=== PATIENT | female | born 1955 | race Caucasian/White ===

== ENCOUNTER 2019-07-02 04:05 | Outpatient (CLI) | payer MEDICARE ==
[~2019-07-02] VITALS: Ht 157.5 cm; Wt 125.5 kg
--- NOTE | ~2019-07-02 | HEMODYNAMI ---
PATIENT:JP VAZQUEZ MEDICAL RECORD: [id number] : 55 LOCATION:[facility] D.2121 ADMISSION DATE: 07/02/19 Generatedon:07/02/201914:11 Patient name: JP VAZQUEZ Patient #: [id number] SSN: [id number] : 1955 Date of study: 07/02/2019 Page: Of Hemodynamic Procedure Report Patient Data Patient Demographics Procedure consent was obtained First Name: JP Gender: Female Last Name: TAYLOR : 1955 Middle Initial: R Age: 64 year(s) Patient #: [id number] Race: SSN: [id number] Additional ID: [id number] Contact details [address]: [address] [place] [address] State: [place] City: [place] Zip code: [address] Past Medical History Allergies Allergen Reaction Date Comments Reported Other allergy 07/02/2019 IODINATED CONTRAST- ORAL AND IV Admission Admission Data Admission Date: 07/02/2019 Admission Time: 4:10 Room #: D.2121 Height (in.): 61.81 BSA: 2 (m2) Height (cm.): 157 BMI: 41.38 (kg/m2) Weight (lbs.): 224.87 Weight (kg.): 102 Lab Results Lab Result Date: 07/02/2019 Lab Result Time: 0:00 Biochemistry Name Units Result Min Max BUN mg/dl 19 --(----)*- 7 18 Creatinine mg/dl 0.7 --(*---)-- 0.6 1.3 eGFR ml/min 88.19149 -*(----)-- 90 120 NONAFRICAN CBC Name Units Result Min Max Hematocrit % 42.4 --(*---)-- 42 54 Hemoglobin g/dl 13.5 --(*---)-- 13.5 17.5 Procedure Procedure Types Cath Procedure Diagnostic Procedure LHC [facility] w/Coronaries Sedation Charges Moderate Sedation up to 15 minutes PCI Procedure Coronary Stent Coronary Stent Initial Procedure Description Procedure Date Procedure Date: 07/02/2019 Procedure Start Time: 13:45 Procedure End Time: 14:09 Procedure Staff Name Function Gomez Sanchez MD Performing Physician Clara Sanabria RT Monitor Monique Mcclure RT Monitor Tanya Huerta RT Scrub Jatinder Castellano RT Scrub Naun Mata RN Nurse Indication NSTEMI Procedure Data Cath Procedure Fluoroscopy Diagnostic fluoroscopy Total fluoroscopy Time: 4.6 time: 4.6 min min Diagnostic fluoroscopy Total fluoroscopy dose: 783 dose: 783 mGy mGy Contrast Material Contrast Material Type Amount (ml) Isovue 300 112 Entry Location Entry Primary Successful Side Size Upsize Upsize Entry Closure Duque ccessful Closure Location (Fr) 1 (Fr) 2 (Fr) Remarks Device Remarks Radial Right 6 Fr Mechanical artery Short Compression Estimated blood loss: 10 ml Diagnostic catheters Device Type Used For End Catheter Placement DIAGNOSTIC [place] 110cm 5 Procedure Fr catheter ([id number]) Procedure Complications No complications Procedure Medications Medication Administration Route Dosage 0.9% NaCl I.V. 100 ml/hr Oxygen etCO2 Nasal cannula 2 l/min Heparin Flush Bag added to field 2 bags (1000units/500ml NS) Lidocaine 2% added to field 20 Radial Cocktail added to field 1 syringe (Verapamil 2mg/Nitro 400mcg/Heparin 1500units) Versed I.V. 2 mg Fentanyl I.V. 100 mcg Versed I.V. 1 mg Radial Cocktail I.A. 1 syringe (Verapamil 2mg/Nitro 400mcg/Heparin 1500units) Heparin Bolus I.V. 5000 units Integrilin (Bolus I.V. 9 ml 2mg/ml) Integrilin (Bolus wasted 1 ml 2mg/ml) Plavix P.O. 600 mg Hemodynamics Rest BSA: 2 (m2) HGB: 13.5 (g/dl) O2 Consumption: Estimated: 203.24 (ml/min) O2 Consu mption indexed: Estimated:101.62 (ml/min/m) Heart Rate: 91 (bpm) Gradients Valve Time Site Site Mean SEP/DFP Peak To Heart Use 1 2 (mmHg) (sec/min) Peak Rate (mmHg) (bpm) Aortic 13:48 LV AO 90 Snapshots Pre Cath Intra NCS Post Cath Vital Signs Time Heart Resp SPO2 etCO2 NIBP Rhythm Pain Sedation Rate (ipm) (%) (mmHg) (mmHg) Status Level (bpm) 13:14:59 90 19 96 0 135/75(98) NSR 0 (11) 10(A) , No pain 13:19:26 85 6 95 29.4 117/64(81) NSR 0 (11) 10(A) , No pain 13:23:44 86 16 93 37.7 116/70(92) NSR 0 (11) 10(A) , No pain 13:28:04 86 15 94 40 117/67(95) NSR 0 (11) 10(A) , No pain 13:32:24 91 10 94 41.4 116/67(88) NSR 0 (11) 10(A) , No pain 13:36:44 90 12 93 40.7 114/66(88) NSR 0 (11) 10(A) , No pain 13:41:00 91 17 93 40.7 113/63(84) NSR 0 (11) 10(A) , No pain 13:45:20 90 16 94 40 108/60(91) NSR 0 (11) 10(A) , No pain 13:49:41 91 16 92 40.7 106/53(84) NSR 0 (11) 10(A) , No pain 13:53:56 92 18 92 40.7 99/58(76) NSR 0 (11) 9(A) , No pain 13:58:10 91 18 93 41.5 109/61(89) NSR 0 (11) 9(A) , No pain 14:02:26 93 17 93 41.5 113/67(91) NSR 0 (11) 10(A) , No pain 14:06:44 92 17 93 42.2 117/61(90) NSR 0 (11) 10(A) , No pain Medications Time Medication Route Dose Verified Delivered Reason Not es Effectiveness by by 13:18:02 0.9% NaCl I.V. 100 Naun Naun Per physician ml/hr Adolfo Mata RN RN 13:18:11 Oxygen etCO2 2 l/min Naun Naun for low 02 sats Nasal Adolfo Mata cannula RN RN 13:18:22 Heparin Flush added 2 bags Naun Naun used for Bag to Adolfo Mata procedure (1000units/500ml field RN RN NS) 13:18:35 Lidocaine 2% added 20ml Naun Naun for local to vial Lorigan Adolfo anesthetic RN RN 13:18:56 Radial Cocktail added 1 Naun Naun used for (Verapamil to syringe Adolfo Mata procedure 2mg/Nitro field SELLERS RN 400mcg/Heparin 1500units) 13:44:04 Versed I.V. 2 mg Naun Naun for sedation Adolfo Mata RN RN 13:44:12 Fentanyl I.V. 100 mcg Naun Naun for sedation Adolfo Mata RN RN 13:45:56 Versed I.V. 1 mg Naun Naun for sedation Adolfo Mata RN RN 13:47:35 Radial Cocktail I.A. 1 Naun Gomez for (Verapamil syringe Lorigan Daniel vasodilation 2mg/Nitro MARLO DE PAZ 400mcg/Heparin 1500units) 13:58:26 Heparin Bolus I.V. 5000 Naun Naun for units Adolfo Mata anticoagulation RN RN 13:58:43 Integrilin I.V. 9 ml Naun Naun for (Bolus 2mg/ml) Adolfo Mata antiplatelet RN RN therapy 13:58:51 Integrilin wasted 1 ml Naun Naun to sharp's (Bolus 2mg/ml) Adolfo Mata RN RN 14:07:48 Plavix P.O. 600 mg Naun Naun for Adolfo Mata antiplatelet RN RN therapy Procedure Log Time Note 12:42:23 Informed consent obtained and on chart 12:43:13 Procedure Status Urgent Heart Cath (IP). 12:43:14 Time tracking: Regular hours (M-F 7:00 - 5:00) 12:43:18 Plan of Care:Hemodynamics will remain stable., Cardiac rhythm will remain stable., Comfort level will be maintained., Respiratory function will remain adequate., Patient/ family verbilizes understanding of procedure., Procedure tolerated without complication., Recovers from procedure without complications.. 12:43:24 H&P Date Dictated: 07/02/2019 Within 30 days and on chart.. 12:47:38 Patient allergic to Other allergyIODINATED CONTRAST- ORAL AND IV 12:48:45 Naun Mata RN sent for patient. Start room use. 12:50:07 Patient Weight : 224.87 lbs 12:50:09 Patient Height : 61.81 inches 12:50:45 Lab Result : BUN 19 mg/dl 12:50:45 Lab Result : Creatinine 0.7 mg/dl 12:50:45 Lab Result : eGFR NONAFRICAN 88.00091 ml/min 12:50:45 Lab Result : Hematocrit 42.4 % 12:50:45 Lab Result : Hemoglobin 13.5 g/dl 13:03:01 Patient received from Med II to CCL 1 Alert and oriented. Tansferred to table in Supine position. 13:03:02 Warm blankets applied, and willie hugger turned on for patient comfort. 13:03:03 Correct patient and procedure confirmed by team. 13:03:03 ECG and BP/O2 sat monitors applied to patient. 13:12:26 Vital chart was started 13:12:29 Baseline sample Acquired. 13:12:31 Rhythm: sinus rhythm 13:12:32 Full Disclosure recording started 13:12:33 Pre-procedure instructions explained to patient. 13:12:33 Pre-op teaching completed and patient verbalized understanding. 13:12:40 Family in patients room. 13:12:42 Patient NPO since Midnight. 13:12:44 Is patient on blood thinner?No 13:12:45 Is the patient allergic to Iodine/contrast media? Yes. 13:12:46 Was the patient premedicated? Yes 13:12:53 Patient diabetic? No. 13:12:58 Previous problem with sedation/anesthesia? No ? 13:12:59 Snore? Yes 13:13:00 Sleep apnea? Yes 13:13:01 Deviated septum? No 13:13:01 Opens mouth fully? Yes 13:13:02 Sticks out tongue? Yes 13:13:06 Airway obstruction? No ? 13:13:10 Dentures? No ? 13:13:15 Pre procedure: right dorsailis pedis pulse 2+ Normal; easily identifiable; not easily obliterated 13:13:16 Modified Leonard's test Ulnar < 7 seconds 13:13:18 Patient pain scale 0/10 ?. 13:13:25 IV patent on arrival in left forearm with 0.9% NaCl at [facility]. 13:13:29 Lab results completed and on chart. 13:13:55 Stress Test: no; N/A NSTEMI 13:16:15 Risk of Mortality: .1 13:16:18 Risk of blood transfusion: 1.2 13:16:21 Risk of ISAIAH: .3 13:16:25 Right Radial & Right Groin area was prepped with chlora-prep and draped in sterile fashion 13:16:27 Alarms reviewed by R. N. 13:16:27 Sharps counted by scrub and verified by R.N. 13:17:22 Indication : NSTEMI 13:17:30 Use device set Radial Dx or PCI 13:17:31 ACIST Syringe (35515) opened to sterile field. 13:17:33 Bag Decanter () opened to sterile field. 13:17:34 ACIST Hand Control (32347) opened to sterile field. 13:17:34 ACIST Manifold (18349) opened to sterile field. 13:17:35 Tegaderm 4 x 4 (1626W) opened to sterile field. 13:17:36 Medline Cath Pack ([id number]) opened to sterile field. 13:17:36 MBrace Wrist Support ([id number]) opened to sterile field. 13:17:38 EMERALD Guide Wire (317-140) opened to sterile field. 13:17:39 SHEATH 6FR RAIN (8946805) opened to sterile field. 13:18:02 0.9% NaCl 100 ml/hr I.V. was administered by Naun Mata RN; Per physician; Verbal order read back and verified. 13:18:11 Oxygen 2 l/min etCO2 Nasal cannula was administered by Naun Mata RN; for low 02 sats; Verbal order read back and verified. 13:18:22 Heparin Flush Bag (1000units/500ml NS) 2 bags added to field was administered by Naun Mata RN; used for procedure; Verbal order read back and verified. 13:18:35 Lidocaine 2% 20ml vial added to field was administered by Naun Mata RN; for local anesthetic; Verbal order read back and verified. 13:18:56 Radial Cocktail (Verapamil 2mg/Nitro 400mcg/Heparin 1500units) 1 syringe added to field was administered by Naun Mata RN; used for procedure; Verbal order read back and verified. 13:25:21 Zero performed for pressure channel P1 13:31:37 Physician arrived 13:31:38 --------ALL STOP TIME OUT------ 13:31:38 Final Timeout: patient, procedure, and site verified with staff and physician. All members of the team are in agreement. 13:31:42 Right Radial & Right Groin site verified by team. 13:31:48 Fire Safety Assessment: A--An alcohol-based skin anteseptic being used preoperatively., C--Open oxygen or nitrous oxide is being used., D--An ESU, laser, or fiber-optic light is being used. 13:31:56 Physical assessment completed. ASA score P 2 - A patient with mild systemic disease as per Gomez Sanchez MD. 13:32:03 2) 60-89 Mildly reduced kidney function, and other findings (as for stage 1) point to kidney disease. 13:32:12 Maximum allowable contrast dose (3.7 X eGFR X 0.75)247 ml. 13:32:19 Sedation plan: IV Moderate Sedation Medication:Versed, Fentanyl 13:44:04 Versed 2 mg I.V. was administered by Naun Mata RN; for sedation; Verbal order read back and verified. 13:44:12 Fentanyl 100 mcg I.V. was administered by Naun Mata RN; for sedation; Verbal order read back and verified. 13:45:32 Procedure started. 13:45:43 Local anesthetic to right radial artery with Lidocaine 2% by Gomez Sanchez MD.INITIAL ACCESS ONLY 13:45:56 Versed 1 mg I.V. was administered by Naun Mata RN; for sedation; Verbal order read back and verified. 13:47:35 Radial Cocktail (Verapamil 2mg/Nitro 400mcg/Heparin 1500units) 1 syringe I.A. was administered by Gomez Sanchez MD; for vasodilation; Verbal order read back and verified. 13:47:49 A 6 Fr Short sheath was inserted into the Right Radial artery 13:48:00 A DIAGNOSTIC [place] 110cm 5 Fr catheter ([id number]) was advanced over the wire and used for Procedure. 13:48:18 LV gram done using SAM 13:48:46 EF : 55 % 13:48:51 Injector settings: Ml/sec: 5, Volume: 15, 13:50:09 LCA angiography performed. 13:50:25 Injector settings: Ml/sec: 3, Volume: 5, 13:52:15 RCA angiography performed. 13:52:37 Injector settings: Ml/sec: 3, Volume: 5, 13:52:41 ACCDominant side:Left 13:52:58 WHISPER 300cm guide wire ([id number]) opened to sterile field. 13:53:14 INFLATOR [place] BasixCompak (UA5384) opened to sterile field. 13:53:50 Catheter exchanged over wire. 13:54:15 Pre PCI Site: [place] mLAD has 80% stenosis. 13:54:32 GUIDE 6FR XBLAD 3.5 SH catheter (10545925) opened to sterile field. 13:54:54 6 Fr XBLAD3.5 guide catheter was inserted over the wire 13:55:08 300 WHISPER wire advanced. 13:58:26 Heparin Bolus 5000 units I.V. was administered by Naun Mata RN; for anticoagulation; Verbal order read back and verified. 13:58:43 Integrilin (Bolus 2mg/ml) 9 ml I.V. was administered by Naun Mata RN; for antiplatelet therapy; Verbal order read back and verified. 13:58:51 Integrilin (Bolus 2mg/ml) 1 ml wasted was administered by Naun Mata RN; to sharp's; Verbal order read back and verified. 13:59:31 Wire advanced across lesion. 14:00:54 Place stent Inflation Number: 1 A YVES OTW 3.0 x 34 stent ([id number]) was prepped and advanced across the Mid LAD . The stent was deployed at 14 KAVIN for 0:10 (min:sec) . 14::34 Stent catheter was removed intact over wire. 14::59 Wire removed. 14:02:00 Guide catheter removed. 14:02:13 ZEPHYR REGULAR TR BAND (258797) opened to sterile field. 14:02:36 Sheath removed intact; hemostasis achieved with Mechanical Compression to the Right Radial artery. 14::41 Procedure ended.(Physican Out) 14:04:34 ACT drawn and resulted at 300 seconds. (normal therapeutic range 180-240 seconds). 14:04:50 Fluoroscopy time 04.60 minutes. 14:05:02 Fluoroscopy dose: 783 mGy 14:05:02 Flurop Dose total: 783 14:05:10 Dose Area Product 32985 mGy/cm. 14:05:20 Contrast amount:Isovue 300 112ml. 14:05:27 Maximum allowable dose exceeded? No. 14:05:29 Sharps counted by scrub and verified by R.N. 14:05:38 [place] band inflated with 7cc of air. 14:05:42 Insertion/operative site no bleeding no hematoma. 14:06:06 Post-op/insertion site Right Radial artery dressed using a 4 x 4 and Tegaderm. 14:06:16 Post right radial artery:stable 14:06:21 Post Procedure Pulses reassessed and unchanged 14:06:25 Post-procedure physical assessment completed. ASA score P 2 - A patient with mild systemic disease as per Gomez Sanchez MD. 14:06:30 Post procedure rhythm: unchanged. 14:06:46 Estimated blood loss: 10 ml 14:06:48 Post procedure instruction explained to patient.Patient verbalizes understanding. 14:06:49 Patient needs reinforcement of post procedure teaching. 14:07:48 Plavix 600 mg P.O. was administered by Naun Mata RN; for antiplatelet therapy; Verbal order read back and verified. 14:07:48 Procedure type changed to Cath procedure, Diagnostic procedure, LHC, C w/Coronaries, Sedation Charges, Moderate Sedation up to 15 minutes, PCI procedure, Coronary Stent, Coronary Stent Initial 14:08:13 Procedure and supply charges have been captured, reviewed, submitted and are correct. 14:08:54 Procedure Complication : No complications 14:08:58 Vital chart was stopped 14:09:05 [facility] Findings: MVD- PCI performed (see procedure note) 14:09:08 Operative report dictated upon procedure completion. 14:09:09 See physician's report for complete and final results. 14:09:13 Report given to [facility]. 14:09:17 Patient transfered to [facility] with Bed. 14:09:49 Procedure ended. 14:09:49 Full Disclosure recording stopped 14:09:59 ACC-PCI Only Patient was given prescriptions, or instructed by Gomez Sanchez MD to start/continue the following medications upon discharge: Plavix 14:10:07 End room use (Document Last) Intervention Summary Intervention Notes Time ActionType Lesion and Equipment Action# Pressure Duration Attributes Used 14:00:54 Place stent Mid LAD YVES OTW 3.0 1 14 00:10 x 34 stent ([id number]) Device Usage Item Name Manufacture Quantity Catalog Hospital Part Current Mini mal Lot# / Number Charge Number Stock Stock Serial# Code ACIST Syringe Acist 1 35835 076745 921373 993400 20 (58153) Medical Systems Inc Bag Decanter Microtek 1 2001S 467689 80188 826566 5 (2001S) Medical Inc. ACIST Hand Acist 1 88982 662162 362011 461366 5 Control Medical (74408) Systems Inc ACIST Acist 1 72858 338019 705462 357802 5 Manifold Medical (27102) Systems Inc Tegaderm 4 x 3M 1 1626W 326676 132281 986383 5 4 (1626W) Medline Cath Medline 1 [id number] 229387 22329 250747 5 Pack (EFNY23472) MBrace Wrist Advanced 1 140-0250-00 686861 91489 015534 5 Support Vascular (956446111) Dynamics EMERALD Guide Cardinal 1 215-011 381577 541096 935920 5 [facility] (253-455) SHEATH 6FR Cardinal 1 8265233 244676 0314632 161005 5 [facility] (5093422) DIAGNOSTIC Terumo 1 405013 778838 591386 578448 5 [place] 110cm 5 Fr catheter (547751) WHISPER 300cm Shannon 1 [id number] 025483 244908 691594 5 guide wire Vascular (2933022TQ) INFLATOR [facility] 1 TU4007 067015 820922 940757 15 [facility] BasixCompak (AH3350) GUIDE 6FR Cardinal 1 [id number] 298845 724600 996271 3 XBLAD 3.5 Health catheter (78410769) YVES OTW 3.0 Medtronic 1 [id number] 045249 1780112 892334 5 [id number] x 34 stent ([id number]) ZEPHYR Cardinal 1 750565 231081 5577078 632720 5 REGULAR TR Health BAND (748856) Signature Audit [place] Stage Time Signature Unsigned Intra-Procedure 07/02/2019 Tanya 2:10:54 PM Bradley RT(R) (CV) Intra-Procedure 07/02/2019 Naun 2:11:23 PM Adolfo SELLERS Intra-Procedure 07/02/2019 Gomez Gong 2:11:57 PM Alfredo DE PAZ [facility] [address] [place] [address]
[2019-07-02] MEDS ORDERED: NUVIGIL150 MG PO (04:14)
[2019-07-02] MEDS ORDERED: ZOVIRAX400 MG PO (04:14)
[2019-07-02] MEDS ORDERED: BAYER CHEWABLE81 MG PO (04:14)
[2019-07-02] MEDS ORDERED: NEXIUM40 MG PO (04:14)
[2019-07-02] MEDS ORDERED: PRISTIQ50 MG PO (04:14)
[2019-07-02] MEDS ORDERED: LISINOPRIL10 MG PO (04:15)
[2019-07-02] MEDS ORDERED: CRESTOR20 MG PO (04:15)
[2019-07-02] MEDS ORDERED: HYDROCODON-ACE1 EA10 PO (04:16)
[2019-07-02] MEDS ORDERED: CELEBREX 100 M100 MG PO (04:16)
[2019-07-02 05:03] LABS: CKMB 1.1 U/L (0.0-3.6); CREATINE KINASE 101 UL (21-215)
[2019-07-02 05:09] LABS: TROPONIN-I 0.115 ng/mL (0.000-0.060)
--- NOTE | 2019-07-02 05:23 | NUR ---
ADMITED TO BED VIA BED LOW AND LOCKED CALL LIGHT GIVEN WILLIAN PT SRX1 LCTA SKIN WARM AND DRY PT REFUSES SCD AT THIS TIME RANKS CP A ONE AND DENIES OTHER NEEDS
[2019-07-02 05:53] VITALS: BP 127/48; BMI 50.6
--- NOTE | 2019-07-02 07:24 | NUR ---
ASSESSMENT DONE. DENIES NEEDS
[2019-07-02 08:16] LABS: BASOPHILS 0.4 % (0-2); EOSINOPHILS 2.3 % (0-7); HEMATOCRIT 42.4 % (36.0-48.0); HEMOGLOBIN 13.5 g/dL (12-16); IMMATURE GRANULOCYTES 0.2 % (0-5); LYMPHOCYTES 46.6 % (15-50); MCH 28.4 pg (26.0-34.0); MCHC 31.8 g/dL (31.0-37.0); MCV 89.3 fL (80.0-100.0); MEAN PLATELET VOLUME 10.5 fL (7.4-10.4); MONOCYTES 7.7 % (2-11); NEUTROPHILS 42.8 % (40-80); PLATELET COUNT 247 10x3/uL (130-400); RBC 4.75 10x6/uL (4.00-5.40); RDW 12.5 % (11.5-14.5); WBC 8.2 10x3/uL (4.8-10.8)
[2019-07-02 08:36] LABS: ALT (SGPT) 23 U/L (10-68); CALC OSMOLALITY 287 mosm/kg (275-300); CALCIUM 8.9 mg/dL (8.5-10.1); CARBON DIOXIDE 26.7 mmol/L (21.0-32.0); CHLORIDE - SERUM 107 mmol/L (98-107); CHOL - HDL RATIO 2.5 ratio (2.3-4.1); CHOLESTEROL, TOTAL 142 mg/dL (0-200); CREATININE - SERUM 0.7 mg/dL (0.6-1.3); GLUCOSE 116 mg/dL (74-106); HDL CHOLESTEROL 56 mg/dL (32-96); LDL CHOLESTEROL 53 mg/dL (0-100); LDL-HDL RATIO 0.9 ratio (1.5-3.5); MAGNESIUM - SERUM 2.2 mg/dL (1.8-2.4); PHOSPHOROUS 4.1 mg/dL (2.5-4.9); POTASSIUM - SERUM 4.1 mmol/L (3.5-5.1); SODIUM 143 mmol/L (136-145); TRIGLYCERIDE 167 mg/dL (30-200); UREA NITROGEN 19 mg/dL (7-18); eGFR NON AFRICAN AMERICAN 89 mL/min (90-120)
[2019-07-02 09:14] VITALS: BP 135/78
--- NOTE | 2019-07-02 10:04 | NUR ---
I have reviewed this patient and I concur with the Shift Assessment completed by the Licensed Practical Nurse today this shift.
--- NOTE | 2019-07-02 13:15 | NUR ---
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
--- NOTE | 2019-07-02 14:15 | NUR ---
RETURN FROM PARTY SUPPLY SPECIALIST WITH [employer] TO RT WRIST. NO HEMATOMA OR BLEEDING NOTED..
[2019-07-02 15:01] VITALS: Ht 157.5 cm; Wt 125.5 kg
[2019-07-02] MEDS ORDERED: PLAVIX75 MG PO (16:53)
--- NOTE | 2019-07-02 18:18 | NUR ---
5CC AIR REMOVED FROM [employer]
--- NOTE | 2019-07-03 09:07 | MORECARE ---
CASE MANAGEMENT DISCHARGE SUMMARY PATIENT: JP VAZQUEZ UNIT: [id number] ADM DATE: 07/02/19 AGE: 64 : 55 SEX: F ROOM/BED: D.3562 AUTHOR: PRANAY ELAM PHYSICIAN: REFERRING PHYSICIAN: MERE TOSCANO MD DATE OF SERVICE: 07/03/19 Discharge Plan Patient Name: JP VAZQUEZ Facility: [facility]:[place] : 1955 Planned Disposition: Home Anticipated Discharge Date: 07/02/19 Discharge Date: 07/02/2019 Expected LOS: 1 Initial Reviewer: [email or web address] Initial Review Date: 07/03/2019 Generated: 07/03/19 10:07 am Patient Name: JP VAZQUEZ Page [id number] at 0907 All edits/amendments must be made on the electronic document DICTATION DATE: 07/03/19906 TROLLEY CAR MECHANIC: GANESH 07/03/19906 RPT#: [id number] DC DATE:07/02/19 STATUS: DIS IN [facility] [address] [place] [address] END OF REPORT
--- NOTE | 2019-07-03 13:38 | OP ---
PATIENT NAME: JP VAZQUEZ MEDICAL RECORD: [id number] :55 LOCATION:D. D.1 ADMISSION DATE:07/02/19 SURGEON: TEGAN BUENROSTRO MD DATE OF OPERATION: 07/02/2019 PROCEDURES: Left heart catheterization, selective coronary angiography, right radial approach. CATHETERS: Radial sheath, [place] catheter. The procedure was well tolerated, the patient returned to the mohamud, sheath removed. TR band placed. FINDINGS: Left ventriculography in 30-degree SAM view: Normal wall motion, normal systolic function. CORONARY ANATOMY: LEFT MAIN: Left main is free of disease. LAD: LAD shows a long diffuse 80% stenosis with haziness in its mid portion, obviously infarct related artery. CIRCUMFLEX: Left dominant system, free of disease. RIGHT CORONARY ARTERY: Rudimentary, free of disease. PLAN: Intervention to the LAD momentarily. DESCRIPTION OF PROCEDURE: Using indwelling radial sheath, an XB LAD 3.5 guide catheter provided excellent guide catheter support, followed by 300 cm Whisper wire was placed across the occluded LAD down to the distal portion of the vessel. A 3.0 x 34 mm [place] drug-eluting stent up to 14 atmospheres for 45 seconds. Final angiography showed excellent resolution of 80% stenosis, no significant residual. SUDHEER flow was 3 throughout the procedure. Heparin and Integrilin were used during the case. Sheath closed with ExoSeal device. Plavix was loaded to the lab. TRANSINT:[id number] Voice Confirmation ID: [id number] DOCUMENT ID: [id number] TEGAN BUENROSTRO MD at 1338 CC: [id number] DICTATION DATE: 07/02/19 1408 GROCERY CARRIER: 07/02/19 2351 DIS IN 07/02/19 [facility] [address] [place] [id number]
--- NOTE | 2019-07-03 13:38 | CN ---
PATIENT NAME:JP VAZQUEZ MEDICAL RECORD: [id number] : 55 LOCATION:[facility] D.2121 ADMIT DATE: 07/02/19 ACCOUNT: [id number] CONSULTING PHYSICIAN: TEGAN BUENROSTRO MD REFERRING PHYSICIAN: MERE TOSCANO MD DATE OF CONSULTATION: 07/02/2019 HISTORY OF PRESENT ILLNESS: A 64-year-old female with no known history of coronary artery disease, has a history of hypertension, hyperlipidemia, reports a progression of chest tightness, pressure. This initially was with exertion, 2 episodes at rest that lasted for couple of days, transferred from [place] after finding the cardiac enzymes consistent with NSTEMI. We are asked to see her concerning her cardiovascular status. PAST MEDICAL HISTORY: Includes: 1. History of hypertension. 2. Hyperlipidemia. 3. Gastroesophageal reflux disease. ALLERGIES: CONTRAST DYE. MEDICATIONS: Include Nexium 40 mg p.o. daily, Pristiq 50 every day, Celebrex 100 b.i.d., aspirin 81 every day, Nuvigil 150 every day, Crestor 20 every day, lisinopril 20 every day. SOCIAL HISTORY: Nonsmoker, nondrinker. Does exercise walking her dog, etc. Easily takes care of all her ADLs. REVIEW OF SYSTEMS: The patient reports easy bruising but reports no swollen glands. The patient reports no fever, no night sweats, no significant weight gain, no significant weight loss. No significant exercise tolerance. The patient reports no dry eyes, no irritation, no vision change. Patient reports no difficulty hearing and no ear pain. Patient reports no frequent nose bleeds or nose and sinus problems. Patient reports on arm pain on exertion. No shortness of breath while lying down. No history of heart murmur. Patient reports no cough, no wheezing or coughing up blood. Patient reports no abdominal pain, no vomiting. Normal appetite. No diarrhea and not vomiting blood. No nausea and no constipation. Patient reports no incontinence. No difficulty urinating. No hematuria. No increased frequency. Patient reports no muscle aches. No weakness, no arthralgias, no back pain. No swelling of the extremities. Patient reports no abnormal mole, no jaundice, no rashes. Reports no loss of consciousness. No weakness and no numbness. No seizures, dizziness, or headaches. The patient reports no depression, no sleep disturbance, feeling safe in a relationship and no alcohol abuse. Patient reports on fatigue. Reports no runny nose or sinus pressure. No itching, no hives, and no frequent sneezing. PHYSICAL EXAMINATION: GENERAL: Pleasant female in no acute distress, appears stated age. VITAL SIGNS: Blood pressure 127/48, pulse 71 and regular. HEENT: Normocephalic, atraumatic. NECK: No JVD or bruit. HEART: Regular, II/ systolic ejection murmur. LUNGS: Good air excursion. ABDOMEN: Soft, nontender. CONSULT REPORT [id number] TAYLORJP R EXTREMITIES: Pulses 2+ with no edema. DIAGNOSTIC DATA: ECG shows nonspecific ST-T changes inferolaterally. IMPRESSION: NSTEMI, multiple risk factors. PLAN: For angiography, intervention based on above. TRANSINT:[id number] Voice Confirmation ID: [id number] DOCUMENT ID: [id number] TEGAN BUENROSTRO MD at 1338 CC: [id number] DICTATION DATE: 07/02/19840 CLAIM TAKER: 07/02/19 1129 DIS IN 07/02/19 [place] [id number] [place] [address]
== END 2019-07-02 19:30 | disposition home or self-care (01) ==
LOC: OBSVTIME → D.OPS 04:05 → D.ER 04:05 → OBSVTIME 04:10 → D.ER 04:10 → D.M2 04:10 → D.ER 05:16 → EDSTATUS 15:55 → D.OPS 19:30 → D.M2 19:30
PROVIDERS: Family Medicine; ATTEND Internal Medicine Nephrology
DX: I21.4 Non-ST elevation (NSTEMI) myocardial infarction (principal); N17.9 Acute kidney failure, unspecified; I10 Essential (primary) hypertension; E78.5 Hyperlipidemia, unspecified; K21.9 Gastro-esophageal reflux disease without esophagitis
CPT/HCPCS: 93458; C9600

== ENCOUNTER → 2019-12-12 12:00 | Outpatient (CLI) | payer MEDICARE ==
[2019-07-02 15:01] VITALS: BMI 50.6
[~2019-12-12 12:00] MED LIST: BAYER CHEWABLE81 MG PO; CELEBREX 100 M100 MG PO; CRESTOR20 MG PO; HYDROCODON-ACE1 EA10 PO; LISINOPRIL10 MG PO; NEXIUM40 MG PO; NUVIGIL150 MG PO; PLAVIX75 MG PO; PRISTIQ50 MG PO; ZOVIRAX400 MG PO
--- NOTE | 2019-12-16 09:57 | EC ---
PATIENT:JP VAZQUEZ DATE OF SERVICE: 12/12/19 SEX: F MEDICAL RECORD: [id number] DATE OF : 55 [facility] AGE OF PATIENT: 64 ADMISSION DATE: 12/12/19 REFERRING PHYSICIAN: INTERPRETING PHYSICIAN: TEGAN BUENROSTRO MD ECHOCARDIOGRAM REPORT ECHO CHARGES 4 ECHO COMPLETE Date: 12/12/19 CLINICAL DIAGNOSIS: CAD/DYSPNEA ON EXERTION/ EDEMA ASSESS EF ECHOCARDIOGRAPHIC MEASUREMENTS (adult normal given) AC root (d.<3.7cm) 3.1 cm LV Septum d (<1.2 cm> 1.5 cm Valve Excursion 1.8 cm LV Septum (systole) 1.9 cm Left Atria (s.<4.0cm> 4.3 cm LVPW d(<1.2cm) 1.5 cm RV (d.<2.3cm) 3.8 cm LVPW (sytole) 1.7 cm LV diastole(<5.6CM) 4.8 cm MV E-F(>70mm/sec) cm LV systole 3.5 cm LVOT Diameter 2.1 cm MV exc.(>10mm) 0.90 cm Est.ejection fraction (50-75%) % DOPPLER: LVIT cm/sec A 107.0cm/sec E 74.0 cm/sec LA cm/sec RVSP 20 mmHg LVOT 113 cm/sec AOP1/2T m/s Asc. Ao 178 cm/sec RVOT 88 cm/sec RA cm/sec PA 113 cm/sec AV Gradient Peak 12.62mmHg AV Mean 6.83 mmHg AV Area 2.8 cm MV Gradient Peak 6.70 mmHg MV Mean 2.29 mmHg MV Area cm COMMENTS: Finance Associate: 2 VIOLET RESTREPO Puppet Developer: 3 Dr. Sanchez TAPE# PACS Pericardial Effusion N DATE OF SERVICE: Adequate 2D, color flow imaging, spectral Doppler, and M-Mode. LVH is present. LV internal dimension is normal. Wall motion is normal. EF is greater than or equal to 55%. Aortic valve is tricuspid. No evidence of stenosis by Doppler interrogation. Left atrium is mildly dilated at 4.3 cm. Mitral valve shows no prolapse. Trace MR. Right-sided chambers are grossly normal. Trace TR. ECHOCARDIOGRAM REPORT [id number] JP VAZQUEZ TRANSINT:[id number] Voice Confirmation ID: [id number] DOCUMENT ID: [id number] TEGAN BUENROSTRO MD at 0957 CC: [id number] DICTATION DATE: 12/12/191413 EXPEDITER SERVICE ORDER: 12/12/19 1425 DEP CLI 12/12/19 [place] [id number] [place] [id number]
== END | disposition home or self-care (01) ==
LOC: D.HCCARDIO 11-11 12:30 → D.HCCECHO 11-11 13:30 → D.HCCARDIO 11:30
PROVIDERS: ATTEND Internal Medicine Cardiovascular Disease
DX: I25.10 Atherosclerotic heart disease of native coronary artery without angina pectoris (principal)

== ENCOUNTER 2019-12-23 07:57 | Outpatient (CLI) | payer MEDICARE ==
[~2019-12-23] VITALS: Ht 157.5 cm; Wt 102.1 kg
--- NOTE | ~2019-12-23 | HEMODYNAMI ---
PATIENT:JP VAZQUEZ MEDICAL RECORD: [id number] : 55 [facility] ADMISSION DATE: 12/23/19 Generatedon:12/23/201910:16 Patient name: JP VAZQUEZ Patient #: [id number] SSN: [id number] : 1955 Date of study: 12/23/2019 Page: Of Hemodynamic Procedure Report Patient Data Patient Demographics Procedure consent was obtained First Name: JP Gender: Female Last Name: TAYLOR : 1955 Middle Initial: R Age: 64 year(s) Patient #: [id number] Race: SSN: [id number] Additional ID: [id number] Contact details Address: [address] [place] [address] State: [place] City: [place] Zip code: [address] Past Medical History History of disease Date Diagnosis Comments CAD Allergies Allergen Reaction Date Comments Reported Other allergy 07/02/2019 IODINATED CONTRAST- ORAL AND IV Other allergy 12/23/2019 IODINE, PLAVIX Admission Admission Data Admission Date: 12/23/2019 Admission Time: 7:57 Arrival Date: 12/23/2019 Arrival Time: 0:00 Height (in.): 61.81 BSA: 2 (m2) Height (cm.): 157 BMI: 41.38 (kg/m2) Weight (lbs.): 224.87 Weight (kg.): 102 Lab Results Lab Result Date: 12/23/2019 Lab Result Time: 0:00 Biochemistry Name Units Result Min Max BUN mg/dl 24 --(----)-* 7 18 Creatinine mg/dl 0.8 --(-*--)-- 0.6 1.3 eGFR ml/min 76.62306 *-(----)-- 90 120 NONAFRICAN CBC Name Units Result Min Max Hematocrit % 42 --(*---)-- 42 54 Hemoglobin g/dl 13.3 -*(----)-- 13.5 17.5 Procedure Procedure Types Cath Procedure Diagnostic Procedure [facility] w/Coronaries Sedation Charges Moderate Sedation up to 15 minutes Procedure Description Procedure Date Procedure Date: 12/23/2019 Procedure Start Time: 9:56 Procedure End Time: 10:12 Procedure Staff Name Function Gomez Sanchez MD Performing Physician More Sheehan RT Monitor Clara Sanabria RT Scrub Yesi Basilio RN Nurse Procedure Data Cath Procedure Fluoroscopy Diagnostic fluoroscopy Total fluoroscopy Time: 1 time: 1 min min Diagnostic fluoroscopy Total fluoroscopy dose: 311 dose: 311 mGy mGy Contrast Material Contrast Material Type Amount (ml) Isovue 300 45 Entry Location Entry Primary Successful Side Size Upsize Upsize Entry Closure Succes sful Closure Location (Fr) 1 (Fr) 2 (Fr) Remarks Device Remarks Femoral Right 5 Fr Exoseal artery Estimated blood loss: 5 ml Procedure Complications No complications Procedure Medications Medication Administration Route Dosage Oxygen etCO2 Nasal cannula 2 l/min Lidocaine 2% added to field 20 Heparin Flush Bag added to field 2 bags (1000units/500ml NS) 0.9% NaCl I.V. 100 ml/hr Versed I.V. 1 mg Fentanyl I.V. 50 mcg Versed I.V. 1 mg Fentanyl I.V. 50 mcg Hemodynamics Rest BSA: 2 (m2) HGB: 13.3 (g/dl) O2 Consumption: Estimated: 192.01 (ml/min) O2 Consu mption indexed: Estimated:96 (ml/min/m) Heart Rate: 76 (bpm) Pressure Samples Time Site Value (mmHg) Purpose Heart Use Rate(bpm) 10:08 LV 106/22,25 Snapshot 79 10:08 AO 133/64(82) Pullback 81 Gradients Valve Time Site Site 2 Mean SEP/DFP Peak To Heart Use 1 (mmHg) (sec/min) Peak Rate (mmHg) (bpm) Aortic 10:08 LV AO 8 18 81 133/64(82) Calculations Valve P-P Mean Valve Index Valve Source Name Gradient Area Flow (cm2) Aortic 8 8 Snapshots Pre Cath Intra NCS Post Cath Vital Signs Time Heart Resp SPO2 etCO2 NIBP Rhythm Pain Sedation Rate (ipm) (%) (mmHg) (mmHg) Status Level (bpm) 9:48:00 81 18 95 31.6 116/72(91) NSR 0 (11) 10(A) , No pain 9:52:28 80 18 95 1.5 123/63(86) NSR 0 (11) 9(A) , No pain 9:56:57 78 15 95 33.1 107/63(81) NSR 0 (11) 9(A) , No pain 10:01:21 73 12 95 42.2 111/61(87) NSR 0 (11) 9(A) , No pain 10:05:47 76 14 93 24.1 115/60(84) NSR 0 (11) 9(A) , No pain 10:10:16 78 15 94 34.6 111/60(77) NSR 0 (11) 10(A) , No pain Medications Time Medication Route Dose Verified Delivered Reason Notes Effe ctiveness by by 9:49:12 Oxygen etCO2 2 Gomez Buffie used for Nasal l/min [facility] Alfred[facility] Basilio RN procedure cannula 9:49:20 Lidocaine 2% added 20ml Gomez Gomez for local to vial [facility] anesthetic field MD DE PAZ 9:49:26 Heparin Flush added 2 Gomez Gomze used for Bag to bags [facility] procedure (1000units/500ml field MD DE PAZ NS) 9:49:36 0.9% NaCl I.V. 100 Gomez Buffie Per ml/hr Daniel Basilio RN physician 9:49:50 Versed I.V. 1 mg Gomez Buffie for [facility] Alfred[facility] Basilio RN sedation 9:49:56 Fentanyl I.V. 50 Gomez Buffie for [facility] Basilio RN sedation 9:58:53 Versed I.V. 1 mg Gomez Buffie for [facility] Alfred[facility] Basilio RN sedation 9:58:58 Fentanyl I.V. 50 Gomez Buffie for [facility] Basilio RN sedation Procedure Log Time Note 9:19:56 Informed consent obtained and on chart 9:20:15 Procedure Status Elective Heart Cath (OP). 9:20:17 Time tracking: Regular hours (M-F 7:00 - 5:00) 9:20:23 Plan of Care:Hemodynamics will remain stable., Cardiac rhythm will remain stable., Comfort level will be maintained., Respiratory function will remain adequate., Patient/ family verbilizes understanding of procedure., Procedure tolerated without complication., Recovers from procedure without complications.. 9:21:24 H&P Date Dictated: 12/23/2019 New H&P dictated by physician.. 9:31:15 Yesi Basilio RN sent for patient. Start room use. 9:32:16 Patient Weight : 224.87 lbs 9:32:33 Patient Height : 61.81 inches 9:32:40 Arrival Date: 12/23/2019 12:00:00 AM 9:34:08 Patient allergic to Other allergyIODINE, PLAVIX 9:34:39 Lab Result : BUN 24 mg/dl 9:34:39 Lab Result : Creatinine 0.8 mg/dl 9:34:39 Lab Result : eGFR NONAFRICAN 76.76115 ml/min 9:34:39 Lab Result : Hematocrit 42 % 9:34:39 Lab Result : Hemoglobin 13.3 g/dl 9:38:36 Patient received from Pre/Post Procedure Room to CCL 1 Alert and oriented. Tansferred to table in Supine position. 9:38:38 Warm blankets applied, and willie hugger turned on for patient comfort. 9:38:38 Correct patient and procedure confirmed by team. 9:38:39 ECG and BP/O2 sat monitors applied to patient. 9:46:36 Baseline sample Acquired. 9:46:36 Vital chart was started 9:46:40 Rhythm: sinus rhythm 9:47:11 Full Disclosure recording started 9:47:11 Pre-procedure instructions explained to patient. 9:47:12 Pre-op teaching completed and patient verbalized understanding. 9:47:18 Family unavailable. 9:47:28 Is the patient allergic to Iodine/contrast media? Yes. 9:47:45 Was the patient premedicated? Yes 9:47:46 Is patient on blood thinner?Yes 9:47:49 ACC The patient was administered the following blood thiners within the last 24 hours: ACCEffient 9:47:51 Patient diabetic? No. 9:47:55 Previous problem with sedation/anesthesia? No ? 9:47:57 Snore? Yes 9:47:58 Sleep apnea? Yes 9:47:59 Deviated septum? No 9:47:59 Opens mouth fully? Yes 9:48:00 Sticks out tongue? Yes 9:48:02 Airway obstruction? No ? 9:48:06 Dentures? No \ 9:48:12 Pre procedure: right dorsailis pedis pulse 2+ Normal; easily identifiable; not easily obliterated 9:48:15 Pre procedure: left dorsailis pedis pulse 2+ Normal; easily identifiable; not easily obliterated 9:48:17 Patient pain scale 0/10 ?. 9:48:23 IV patent on arrival in left forearm with 0.9% NaCl at [facility]. 9:48:28 Lab results completed and on chart. 9:48:38 Stress Test: no; N/A ? 9:48:47 Right Radial & Right Groin area was prepped with chlora-prep and draped in sterile fashion 9:48:48 Alarms reviewed by R. N. 9:48:49 Sharps counted by scrub and verified by R.N. 9:48:50 Physician arrived 9:48:51 --------ALL STOP TIME OUT------ 9:48:51 Final Timeout: patient, procedure, and site verified with staff and physician. All members of the team are in agreement. 9:48:53 Right Radial & Right Groin site verified by team. 9:48:56 Fire Safety Assessment: A--An alcohol-based skin anteseptic being used preoperatively., C--Open oxygen or nitrous oxide is being used., D--An ESU, laser, or fiber-optic light is being used. 9:49:00 Physical assessment completed. ASA score P 2 - A patient with mild systemic disease as per Gomez Sanchez MD. 9:49:09 2) 60-89 Mildly reduced kidney function, and other findings (as for stage 1) point to kidney disease. 9:49:12 Oxygen 2 l/min etCO2 Nasal cannula was administered by Yesi Basilio RN; used for procedure; Verbal order read back and verified. 9:49:13 Maximum allowable contrast dose (3.7 X eGFR X 0.75)211 ml. 9:49:16 Sedation plan: IV Moderate Sedation Medication:Versed, Fentanyl 9:49:20 Lidocaine 2% 20ml vial added to field was administered by Gomez Sanchez MD; for local anesthetic; Verbal order read back and verified. 9:49:21 Use device set Radial Dx or PCI 9:49:22 ACIST Syringe (62541) opened to sterile field. 9:49:22 Medline Cath Pack ([id number]) opened to sterile field. 9:49:23 Bag Decanter () opened to sterile field. 9:49:23 ACIST Hand Control (35189) opened to sterile field. 9:49:23 ACIST Manifold (75959) opened to sterile field. 9:49:24 Tegaderm 4 x 4 (1626W) opened to sterile field. 9:49:24 MBrace Wrist Support ([id number]) opened to sterile field. 9:49:26 Heparin Flush Bag (1000units/500ml NS) 2 bags added to field was administered by Gomez Sanchez MD; used for procedure; Verbal order read back and verified. 9:49:26 SHEATH 6FR RAIN (3947677) opened to sterile field. 9:49:27 EMERALD Guide Wire (340-166) opened to sterile field. 9:49:36 0.9% NaCl 100 ml/hr I.V. was administered by Yesi Basilio RN; Per physician; Verbal order read back and verified. 9:49:50 Versed 1 mg I.V. was administered by Yesi Basilio RN; for sedation; Verbal order read back and verified. 9:49:56 Fentanyl 50 mcg I.V. was administered by Yesi Basilio RN; for sedation; Verbal order read back and verified. 9:56:01 Procedure started. 9:56:04 Local anesthetic to right radial artery with Lidocaine 2% by Gomez Sanchez MD.INITIAL ACCESS ONLY 9:56:19 Zero performed for pressure channel P1 9:56:25 Zero performed for pressure channel P1 9:58:53 Versed 1 mg I.V. was administered by Yesi Basilio RN; for sedation; Verbal order read back and verified. 9:58:58 Fentanyl 50 mcg I.V. was administered by Yesi Basilio RN; for sedation; Verbal order read back and verified. 10:04:41 Local anesthetic to right femoral artery with Lidocaine 2% by Gomez Sanchez MD.ADDITIONAL ACCESS 10:04:50 SHEATH 5FR [place] ([id number]) opened to sterile field. 10:04:58 DIAGNOSTIC Multipack 5Fr catheter set ([id number]) opened to sterile field. 10:05:32 A 5 Fr sheath was inserted into the Right Femoral artery 10:06:44 5 Fr JL 4 guide catheter was inserted over the wire 10:07:20 LCA angiography performed. 10:07:23 Injector settings: Ml/sec: 3, Volume: 6, 10:07:24 Catheter removed. 10:07:29 5 Fr 3DRC guide catheter was inserted over the wire 10:07:36 RCA angiography performed. 10:07:39 Injector settings: Ml/sec: 3, Volume: 6, 10:07:50 Catheter removed. 10:07:57 5 Fr PIGTAIL guide catheter was inserted over the wire 10:08:35 LV hemodynamics recorded. 10:08:36 LV gram done using SAM 10:08:41 Injector settings: Ml/sec: 5, Volume: 15, 10:09:00 Catheter removed. 10:09:10 EXOSEAL 5Fr (EX500) opened to sterile field. 10:09:44 ACCDominant side:Right 10:09:56 Sheath removed intact; hemostasis achieved with Exoseal to the Right Femoral artery. 10:09:58 Procedure ended.(Physican Out) 10:10:08 Fluoroscopy time 01.00 minutes. 10:10:13 Fluoroscopy dose: 311 mGy 10:10:13 Flurop Dose total: 311 10:10:20 Dose Area Product 42905 mGy/cm. 10:11:24 Contrast amount:Isovue 300 45ml. 10:11:29 Maximum allowable dose exceeded? No. 10:11:30 Sharps counted by scrub and verified by R.N. 10:11:32 Insertion/operative site no bleeding no hematoma. 10:11:38 Post procedure rhythm: unchanged. 10:11:40 Estimated blood loss: 5 ml 10:11:42 Post procedure instruction explained to patient.Patient verbalizes understanding. 10:11:43 Patient needs reinforcement of post procedure teaching. 10:11:57 Procedure type changed to Cath procedure, Diagnostic procedure, LHC, [facility] w/Coronaries, Sedation Charges, Moderate Sedation up to 15 minutes 10:11:58 Procedure and supply charges have been captured, reviewed, submitted and are correct. 10:12:02 Procedure Complication : No complications 10:12:05 Vital chart was stopped 10:12:07 [facility] Findings: mild to moderate CAD (<70%) 10:12:09 Operative report dictated upon procedure completion. 10:12:09 Operative report dictated upon procedure completion. 10:12:10 See physician's report for complete and final results. 10:12:12 Report given to Pre/Post Procedure Room. 10:12:15 Patient transfered to Pre/Post Procedure Room with Stretcher. 10:12:18 Procedure ended. 10:12:18 Full Disclosure recording stopped 10:12:22 End room use (Document Last) Device Usage Item Name Manufacture Quantity Catalog Hospital Part Current Minima l Lot# / Number Charge Number Stock Stock Serial# Code ACIST Acist 1 [id number] [id number] [id number] 20 Syringe Medical (71516) Systems Inc Medline Medline 1 [id number] 70820 206291 5 Cath Pack ([id number]) Bag Microtek 1 2001S 631691 11096 190211 5 Decanter Medical Inc. () ACIST Hand Acist 1 51573 754599 248864 163367 5 Control Medical (15596) Systems Inc ACIST Acist 1 89457 864946 312487 415753 5 Manifold Medical (23947) Systems Inc Tegaderm 4 3M 1 1626W 977701 668704 951416 5 x 4 (1626W) MBrace Advanced 1 140-0250-00 301811 33725 307826 5 Wrist Vascular Support Dynamics ([id number]) SHEATH 6FR Cardinal 1 0149120 971485 1006165 025483 5 [facility] (8570251) EMERALD Cardinal 1 502-455 648320 136890 136078 5 Guide Wire Health (502-455) SHEATH 5FR Terumo 1 [id number] 265054 891496 045826 5 [place] (RVM813) DIAGNOSTIC Cardinal 1 QW9940 803497 37237 155652 30 Multipack Health 5Fr catheter set (WC0095) EXOSEAL 5Fr Cardinal 1 EX500 407922 328463 761017 10 (EX500) Health Signature Audit Hasty Stage Time Signature Unsigned Intra-Procedure 12/23/2019 More Sheehan 10:14:29 AM RT(R) Intra-Procedure 12/23/2019 Yesi Basilio RN 10:14:53 AM Intra-Procedure 12/23/2019 Gomez Gong 10:16:14 AM Alfredo DE PAZ [facility] [address] [place] [address]
[2019-12-23] MEDS ORDERED: EFFIENT5 MG PO (08:19)
[2019-12-23] MEDS ORDERED: ASPIRIN325 MG PO (08:19)
[2019-12-23] MEDS ORDERED: HYDROCODON-ACE1 EAC2 PO (08:21)
[2019-12-23] MEDS ORDERED: ZOVIRAX200 MG PO (08:23)
[2019-12-23] MEDS ORDERED: K-TAB10 MEQ PO (08:23)
[2019-12-23] MEDS ORDERED: PRISTIQ100 MG PO (08:24)
[2019-12-23] MEDS ORDERED: NUVIGIL50 MG PO (08:25)
[2019-12-23] MEDS ORDERED: VISTARIL50 MG PO (08:26)
[2019-12-23] MEDS ORDERED: FUROSEMIDE20 MG PO (08:27)
[2019-12-23] MEDS ORDERED: MIRAPEX0.5 MG PO (08:27)
[2019-12-23] MEDS ORDERED: MYRBETRIQ50 MG PO (08:28)
[2019-12-23 08:30] VITALS: BP 104/67; Ht 157.5 cm; Wt 102.1 kg
[2019-12-23 08:39] LABS: BASOPHILS 0.4 % (0-2); EOSINOPHILS 1.6 % (0-7); HEMOGLOBIN 13.3 g/dL (12-16); IMMATURE GRANULOCYTES 0.3 % (0-5); LYMPHOCYTES 29.4 % (15-50); MCH 27.5 pg (26.0-34.0); MCHC 31.7 g/dL (31.0-37.0); MCV 86.8 fL (80.0-100.0); MONOCYTES 4.5 % (2-11); NEUTROPHILS 63.8 % (40-80); PLATELET COUNT 240 10x3/uL (130-400); RBC 4.84 10x6/uL (4.00-5.40); RDW 12.4 % (11.5-14.5)
[2019-12-23 08:54] LABS: ALT (SGPT) 30 U/L (10-68); CALC OSMOLALITY 282 mosm/kg (275-300); CALCIUM 9.2 mg/dL (8.5-10.1); CARBON DIOXIDE 29.2 mmol/L (21.0-32.0); CHLORIDE - SERUM 102 mmol/L (98-107); CHOL - HDL RATIO 2.4 ratio (2.3-4.1); CHOLESTEROL, TOTAL 146 mg/dL (0-200); CREATININE - SERUM 0.8 mg/dL (0.6-1.3); GLUCOSE 114 mg/dL (74-106); HDL CHOLESTEROL 60 mg/dL (32-96); LDL CHOLESTEROL 58 mg/dL (0-100); POTASSIUM - SERUM 4.1 mmol/L (3.5-5.1); SODIUM 139 mmol/L (136-145); TRIGLYCERIDE 142 mg/dL (30-200); UREA NITROGEN 24 mg/dL (7-18); eGFR NON AFRICAN AMERICAN 76 mL/min (90-120)
--- NOTE | 2019-12-23 10:22 | NUR ---
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 PT SLEEPY BUT VERBALLY AROUSABLE. PT DENIES PAIN OR DISCOMFORT. IV PATENT INFUSING VIA ORDERS TO L ARM. PT PLACED ON CARDIAC MONITORS, HR 78, BP 107/73, RR 15, SAT 96. R GROIN SOFT, DRESSING CDI NO S/S HEMATOMA OR BLEEDING NOTED. LEG PINK AND WARM, PEDAL PULSES PALPABLE. PT INSTRUCTED TO KEEP HEAD ON PILLOW AND LEG STRAIGHT SHE VERBALIZED UNDERSTANDING. CALL LIGHT IN REACH
--- NOTE | 2019-12-23 10:45 | NUR ---
PT RESTING COMFORTABLY. VSS. R GROIN SOFT, DRESSING CDI NO S/S HEMATOMA OR BLEEDING NOTED. PT'S DAUGHTER CALLED AND DISCHARGE INFORMATION GIVEN. CALL LIGHT IN REACH
--- NOTE | 2019-12-23 11:30 | NUR ---
PT CONTINUES SLEEPING W/O COMPLAINTS. R GROIN SOFT, DRESSING REMAINS CDI NO S/S HEMATOMA OR BLEEDING NOTED. VSS. CALL LIGHT IN REACH
--- NOTE | 2019-12-23 11:59 | NUR ---
R GROIN SOFT, DRESSING CDI NO S/S HEMATOMA. HOB ELEVATED, SANDWICH AND DRINK SERVED. PT DENIES PAIN OR DISCOMFORT. VSS. CALL LIGHT IN REACH.
--- NOTE | 2019-12-23 12:17 | NUR ---
DISCHARGE INSTRUCTIONS REVIEWED W PT, SHE VERBALIZED UNDERSTANDING. IV REMOVED W CATH INTACT, MONITORS REMOVED. R GROIN SOFT, NO BLEEDING OR S/S HEMATOMA NOTED. 1200 O2 REMOVED.
--- NOTE | 2019-12-23 12:23 | NUR ---
PT DRESSED AND AMBULATED TO BR, VOIDING W/O DIFFICULITY.
--- NOTE | 2019-12-23 12:30 | NUR ---
PT DISCHARGED VIA WC TO DAUGHTER WAITING IN PRIVATE VEHICLE. PT HAD ALL BELONGINGS AND DISCHARGE PAPERWORK IN HAND
--- NOTE | 2019-12-24 08:35 | HP ---
PATIENT: JP VAZQUEZ MEDICAL RECORD: [id number] ACCOUNT: [id number] LOCATION:[facility] : 55 ADMISSION DATE: 12/23/19 PCP: TEGAN BUENROSTRO MD HISTORY AND PHYSICAL EXAMINATION HISTORY OF PRESENT ILLNESS: A 64-year-old lady with a known history of coronary artery disease, status post intervention to LAD, initially seen in the office with recurrent angina, underwent Cardiolite stress testing, which showed reversible ischemia, is being brought to the lab for further evaluation, symptomology worsened to class III angina at this point, continued on antiplatelet at this point. PAST MEDICAL HISTORY: Includes: 1. History of hypertension. 2. Hyperlipidemia. 3. Coronary artery disease as described above. MEDICATIONS: Include Nexium 40 mg p.o. every day, Lasix 20 mg p.o. p.r.n., Mirapex 0.5 bedtime, Pristiq 100 mg daily, aspirin 325 every day, Nuvigil 200 every day, lisinopril 20 every day, Effient 10 every day, and Crestor 20 every day. PHYSICAL EXAMINATION: GENERAL: Pleasant female, in no acute distress, appears stated age. HEENT: Normocephalic, atraumatic. NECK: No JVD or bruit. HEART: Regular. LUNGS: Sanabria clear. ABDOMEN: Soft, nontender. EXTREMITIES: Pulses 2+ with no edema. IMPRESSION: Worsening class III angina, reversible ischemia. PLAN: Angiography, intervention based on above. TRANSINT:[id number] Voice Confirmation ID: [id number] DOCUMENT ID: [id number] TEGAN BUENROSTRO MD at 0835 CC: [id number] DICTATION DATE: 12/23/19 0849 PATTERN CARRIER: 12/23/19 0932 [facility] CLI 12/23/19 [place] [address]
--- NOTE | 2019-12-24 08:35 | OP ---
PATIENT NAME: JP VAZQUEZ MEDICAL RECORD: [id number] :55 LOCATION:D.CAT ADMISSION DATE: SURGEON: TEGAN BUENROSTRO MD DATE OF OPERATION: 12/23/2019 PROCEDURE: Left heart catheterization, selective coronary angiography, right femoral artery approach. CATHETERS: A 5-Romanian sheath, 5/4 left and right [place], 5/4 pig. The procedure was well tolerated. The patient returned to mohamud, sheath removed. ExoSeal device placed. FINDINGS: Left ventriculography in 30-degree SAM view: Normal wall motion, normal systolic function. CORONARY ANATOMY: LEFT MAIN: Left main is free of disease. LAD: An area of previous stenting is widely patent. No evidence of restenosis. No evidence progression of elim ira disease. CIRCUMFLEX: The left dominant system. Circumflex free of disease. RIGHT CORONARY ARTERY: Rudimentary, free of disease. IMPRESSION: Normal left ventricular systolic function, normal coronary anatomy. No evidence of restenosis. TRANSINT:[id number] Voice Confirmation ID: [id number] DOCUMENT ID: [id number] TEGAN BUENROSTRO MD at 0835 CC: [id number] DICTATION DATE: 12/23/19 1016 SPRING FITTER: 12/23/19 2116 DEP CLI 12/23/19 [facility] [address] [place] [address]
== END 2019-12-23 12:30 | disposition home or self-care (01) ==
LOC: D.CATH 07:57
PROVIDERS: ATTEND Internal Medicine Interventional Cardiology
DX: I25.119 Atherosclerotic heart disease of native coronary artery with unspecified angina pectoris (principal); I10 Essential (primary) hypertension; R60.0 Localized edema; E78.5 Hyperlipidemia, unspecified